=== PATIENT | female | born 1995 | race Hispanic/Latino ===

== ENCOUNTER 2017-04-05 21:00 | Inpatient (IN) | payer MEDICAID, OTHER, SELFPAY ==
[~2017-04-05 21:00] MED LIST: Carboprost 250 MCG/ML AMP IM PRN; Ibuprofen 800 MG TAB PO PRN; Lidocaine 1% (PF) 30 ML VIAL SC PRN; Misoprostol 200 MCG TAB PR PRN; Promethazine HCl 25 MG/ML VIAL IM PRN; Zolpidem Tartrate 5 MG TAB PO PRN
[2017-04-05] MEDS ORDERED: Acetaminophen 500 MG TAB PO PRN (21:09)
[2017-04-05 21:51] VITALS: BMI 36.2
[2017-04-05] MEDS: Misoprostol 100 MCG TAB VAG SCH (22:11)
[2017-04-05] MEDS: Lactated Ringer's 1,000 ML IV SCH (22:11)
[2017-04-05 22:18] LABS: Hemoglobin 12.2 g/dL (12.0-16.0); Mean Corpuscular HGB CONC 33.8 g/dL (32.0-36.0); Mean Corpuscular Hemoglobin 29.5 pg (27.0-31.0); Mean Corpuscular Volume 87.2 fl (81.0-99.0); Mean Platelet Volume 9.6 fL (7.4-10.4); Platelet Count 178 thou/uL (130-400); RBC Distribution Width 12.7 % (11.5-14.5); Red Blood Cell (RBC) Count 4.14 mill/uL (4.20-5.40)
[2017-04-05 23:05] LABS: Syphilis Antibody Nonreactive (Nonreactive); Syphilis Antibody Index 0.03 S/CO (<1.00 Non-Reactive)
[2017-04-05 23:54] LABS: HBSAg Index 0.42 S/CO (0-0.99); Hep B Surf Ag Non-Reactive S/CO (NonReactive)
[2017-04-06] MEDS: Misoprostol 100 MCG TAB VAG SCH ×5 (02:13→23:03)
[2017-04-06] MEDS ORDERED: hydrALAZINE 20 MG/ML VIAL SLOW IVP PRN (03:36)
[2017-04-06 03:58] LABS: Creatinine, Urine 21.04 mg/dL (47-110)
[2017-04-06 04:00] LABS: ALT (SGPT) 21 U/L (8-55); AST (SGOT) 19 U/L (5-34); Albumin 3.2 g/dL (3.5-5.0); Alkaline Phosphatase 315 U/L (40-150); Anion Gap 13 mmol/L (10-20); BUN (Urea Nitrogen) 11 mg/dL (7.0-18.7); Bilirubin, Total 0.2 mg/dL (0.2-1.2); Calc. Creatinine Clearance 224 mL/min (70-130); Calcium 9.2 mg/dL (7.8-10.44); Carbon Dioxide 19 mmol/L (22-29); Chloride 111 mmol/L (98-107); Estimated GFR-MDRD Greater than 90; Globulin 2.7 g/dL (2.4-3.5); Glucose 76 mg/dL (70-105); Potassium 4.4 mmol/L (3.5-5.1); Protein, Total 5.9 g/dL (6.0-8.3); Sodium 139 mmol/L (136-145)
[2017-04-06] MEDS ORDERED: Bupivacaine 0.5% 20 ML, Fentanyl 400 MCG in Sodium Chloride 0.9% 72 ML EPIDURAL SCH (04:30)
[2017-04-06] MEDS: Lactated Ringer's 1,000 ML IV SCH ×3 (05:17→19:53)
[2017-04-06] MEDS ORDERED: Promethazine HCl 25 MG/ML VIAL IM PRN (05:19)
[2017-04-06] MEDS ORDERED: Eucerin (Mineral Oil/Petrolatum,White) 30 gm Jar TOP PRN (05:19)
[2017-04-06] MEDS ORDERED: Lactated Ringer's 500 ML IV PRN (05:19)
[2017-04-06] MEDS ORDERED: Acetaminophen 325 MG TAB PO PRN (05:19)
[2017-04-06] MEDS ORDERED: Naloxone HCl 0.4 mg/ml Vial IVP PRN ×2 (05:19)
[2017-04-06] MEDS ORDERED: ePHEDrine/0.9% NaCl/PF SYRINGE 50 mg/10 ml SLOW IVP PRN (05:19)
[2017-04-06] MEDS ORDERED: diphenhydrAMINE 50 MG/ML VIAL IVP PRN (05:19)
[2017-04-06] MEDS ORDERED: Ondansetron HCl/PF 4 MG/2 ML Vial IVP PRN (05:19)
[2017-04-06] MEDS ORDERED: Fentanyl 4mcg/Marcaine 0.1% Cassette 100 ML EPIDURAL SCH (05:30)
[2017-04-06] MEDS ORDERED: Communication Order-Pharmacy FS SCH (05:30)
[2017-04-06] MEDS ORDERED: Calcium Gluc 4.6 MEQ/10 ML (100 MG/ML) SLOW IVP PRN (07:11)
[2017-04-06] MEDS ORDERED: LR 500 ML/Oxytocin 10 units 500 ML ONE (07:15)
[2017-04-06] MEDS ORDERED: Magnesium Sulfate 20 GM/WATER 500 ML BAG IVPB SCH (07:15)
[2017-04-06] MEDS: Magnesium Sulfate 20 gm/500 ml 20 GM/500 ML BAG IVPB SCH ×2 (07:39→16:22)
[2017-04-06] MEDS: Ondansetron HCl/PF 4 MG/2 ML Vial IVP PRN ×2 (08:28→15:31)
[2017-04-06] MEDS: LR / Pitocin 40 units/1000 ml 1,000 ML IV PRN ×2 (15:02→23:14)
[2017-04-06] MEDS ORDERED: Calcium Gluconate 4.6 MEQ in Sodium Chloride 0.9% 100 ML IVPB SCH (15:07)
[2017-04-06] MEDS ORDERED: traMADol HCl 50 MG TAB PO PRN ×2 (15:08)
--- NOTE | 2017-04-06 15:10 | PDOC.OPDEL ---
OB Operative/Delivery Note Delivery Dr/Surgeon: Tiffanie Pre-Delivery Diagnosis: medically indicated induction Procedure/Post Delivery Dx: spontaneous vaginal delivery Weeks gestation: 40 Anesthesia: epidural - Findings A Sex: male - 1 min: 8 - 5 min: 9 - Additional Findings/Plan Placenta delivered: spontaneous Repaired Obstetrical Laceration: 2nd degree Estimated blood loss: 300ml Post delivery plan: recovery in LICU (magnesium seizure prophylaxis)
--- NOTE | 2017-04-06 18:56 | PDOC.EVN ---
Event Note - Event Note Event Note: @1855: I was just notified by Clifford, the patient's nurse, that Ms Han has had a PPH of an additional 600cc of blood in addition to the approx 400ml she lost at delivery with Dr Moreno earlier this afternoon. Vitals are stable. Dr Moreno was just notified by the RN as well and has ordered Hemabate. Cytotec 800mcg has been given ME by the RN. We will follow closely and keep in L&D due to her mag use. Hand H in AM run or sooner if vitals indicated.
--- NOTE | 2017-04-06 19:14 | PDOC.EVN ---
Event Note - Event Note Event Note: Patient seen at bedside, no active VB. Ut fundus firm. Plan D/P patient. I will order Lysteda 1gram IV X 1 as per ACOG recs. HH pending for AM moshe. Gege in use
[2017-04-06] MEDS ORDERED: Tranexamic Acid 1,000 MG in Sodium Chloride 0.9% 250 ML 250 ML IVPB SCH (19:15)
--- NOTE | 2017-04-06 19:18 | PDOC.EVN ---
Event Note - Event Note Event Note: Creatinine normal at 0.62...ok for Lysteda
--- NOTE | 2017-04-06 20:12 | PDOC.EVN ---
Event Note - Event Note Event Note: Just notified by RN that patients BP was 90/50 (X1). Reflexes are ok. She is A & O. I will order stat H&H now to assess. Lysteda in use and no active VB. SCDs in use.
[2017-04-06] MEDS: LR 500 ML/Oxytocin 10 units 500 ML IV SCH (20:34)
[2017-04-06 20:39] LABS: Hemoglobin 11.9 g/dL (12.0-16.0)
--- NOTE | 2017-04-06 21:20 | PDOC.EVN ---
Event Note - Event Note Event Note: Hct stable at 35
[2017-04-07] MEDS: Magnesium Sulfate 20 gm/500 ml 20 GM/500 ML BAG IVPB SCH (01:51)
[2017-04-07] MEDS ORDERED: traMADol HCl 50 MG TAB PO PRN (08:21)
[2017-04-07] MEDS ORDERED: Preparation H Ointment 28 GM TUBE PR PRN (08:21)
[2017-04-07] MEDS ORDERED: diphenhydrAMINE 25 MG CAP PO PRN (08:21)
[2017-04-07] MEDS ORDERED: Adacel (T-DAP) 0.5 ML VIAL IM ONE (08:21)
[2017-04-07] MEDS ORDERED: Bisacodyl 10 MG SUPP PR PRN (08:21)
[2017-04-07] MEDS ORDERED: Milk Of Magnesia 30 ML UDCUP PO PRN (08:21)
[2017-04-07] MEDS ORDERED: Benzocaine/Menthol 20-0.5% 60 ML CAN TOP PRN (08:21)
[2017-04-07] MEDS: Prenatal Vitamin 1 TAB PO SCH ×2 (11:19→12:03)
[2017-04-07] MEDS: Docusate Calcium (SURFAK) 240 MG CAP PO SCH ×3 (11:19→21:59)
[2017-04-07 12:01] LABS: Hemoglobin 10.2 g/dL (12.0-16.0); Mean Corpuscular HGB CONC 32.8 g/dL (32.0-36.0); Mean Corpuscular Hemoglobin 29.3 pg (27.0-31.0); Mean Corpuscular Volume 89.2 fl (81.0-99.0); Mean Platelet Volume 9.3 fL (7.4-10.4); Platelet Count 188 thou/uL (130-400); RBC Distribution Width 13.1 % (11.5-14.5)
[2017-04-07] MEDS ORDERED: Bupivacaine 0.25% HCL 30 ML VIAL ONE (14:09)
[2017-04-07] MEDS: Lactated Ringer's 1,000 ML IV SCH (14:39)
[2017-04-07] MEDS: Ferrous Sulfate 325 MG TAB PO SCH (18:44)
[2017-04-08 05:51] LABS: Hemoglobin 9.1 g/dL (12.0-16.0); Mean Corpuscular HGB CONC 33.1 g/dL (32.0-36.0); Mean Corpuscular Hemoglobin 29.8 pg (27.0-31.0); Mean Corpuscular Volume 90.1 fl (81.0-99.0); Mean Platelet Volume 8.7 fL (7.4-10.4); Platelet Count 170 thou/uL (130-400); RBC Distribution Width 13.1 % (11.5-14.5); Red Blood Cell (RBC) Count 3.06 mill/uL (4.20-5.40); White Blood Cell (WBC) Count 8.5 thou/uL (4.8-10.8)
--- NOTE | 2017-04-08 07:31 | PDOC.PP ---
Post Progress Note Post Day #: 2 PO intake tolerated: yes Flatus: yes Ambulation: yes Vital Signs (12 hours) Temp Pulse Resp BP 04/07/17 20:30 98.3 F 89 22 H 123/63 Weight Admit Weight 218 lb Weight 218 lb - Physical Examination General: NAD Respiratory: clear to auscultation bilaterally, non-labored breathing Abdominal: + bowel sounds, lochia, no distention, appropriately TTP Result Diagrams: 04/08/17 05:03 04/06/17 03:27 Additional Labs: Post Labs Blood Type B POSITIVE 04/05/17 22:06 Hep Bs Antigen Non-Reactive S/CO (NonReactive) 04/05/17 22:06 - Assessment/Plan post day 2--doing well. d/c home f/u 6 weeks
[2017-04-08 08:41] VITALS: BP 119/72; TEMP 97.7
[2017-04-08] MEDS: Ferrous Sulfate 325 MG TAB PO SCH (08:46)
[2017-04-08] MEDS: Prenatal Vitamin 1 TAB PO SCH (08:47)
[2017-04-08] MEDS: Docusate Calcium (SURFAK) 240 MG CAP PO SCH (08:47)
== END 2017-04-08 16:00 | disposition home or self-care (01) | DRG 775 ==
LOC: L&D 21:01 → 3SW 04-07 12:19
PROVIDERS: ADMIT Obstetrics & Gynecology; ATTEND Obstetrics & Gynecology
PROC: 3E0234Z Introduction of Serum, Toxoid and Vaccine into Muscle, Percutaneous Approach (ICD-10-PCS; principal; 2017-04-06)
PROC: 10E0XZZ Delivery of Products of Conception, External Approach (ICD-10-PCS; 2017-04-06)
PROC: 0KQM0ZZ Repair Perineum Muscle, Open Approach (ICD-10-PCS; 2017-04-06)
DX: O70.1 Second degree perineal laceration during delivery (principal); Z37.0 Single live birth; Z23 Encounter for immunization; Z3A.40 40 weeks gestation of pregnancy
CPT/HCPCS: 36415; 51702; 80053; 82570; 83735; 84156; 85014; 85018; 85027; 86780; 87340; 90715; 93005; 93010; J0360; J2405; J2550; J3010; J3475; J3490; J7050; J7120; S0020